=== PATIENT | female | born 1985 | race Caucasian/White ===

== ENCOUNTER 2017-04-14 07:14 | Inpatient (IN) | payer MEDICAID ==
[2017-04-14] MEDS ORDERED: Oxytocin 20 units in LR 2,000 ML IV ONE (07:39)
[2017-04-14] MEDS ORDERED: Sodium Citrate/Citric Acid 15 ml Sol ONE (07:39)
[2017-04-14] MEDS ORDERED: cefOXitin IV 2 gm in Dextrose 2 GM/50 ML BAG IVPB ONE ×2 (07:39→08:00)
[2017-04-14] MEDS ORDERED: Sodium Citrate/Citric Acid 15 ml Sol PO ONE (07:43)
[2017-04-14 07:46] LABS: BASO # 0.1 K/uL (0.0-0.2); BASO % 0.6 % (0.0-2.0); EOS # 0.2 K/uL (0.0-0.7); EOS % 1.2 % (0.0-4.0); HEMATOCRIT 40.6 % (34.0-47.0); LYMPH % 16.2 % (20.0-40.0); MEAN CELL VOLUME 81.3 fL (81.0-99.0); MEAN CORPUSCULAR HEMOGLOBIN 26.5 pg (27.0-31.0); MEAN CORPUSCULAR HGB CONC 32.5 g/dL (33.0-37.0); MEAN PLATELET VOLUME 9.9 fL (7.2-11.7); MONO # 0.6 K/uL (0.0-0.8); MONO % 5.1 % (0.0-10.0); NRBC % 0.1 % (0.0-2.0); RED CELL DISTRIBUTION WIDTH 15.8 % (11.5-14.5); WHITE BLOOD COUNT 12.5 K/uL (4.8-10.8)
[2017-04-14 07:58] LABS: CHLORIDE 102 mmol/L (98-107); POTASSIUM 3.9 mmol/L (3.6-5.2); SODIUM 137 mmol/L (132-148)
[2017-04-14 08:00] LABS: BILIRUBIN,TOTAL 0.8 mg/dL (0.2-1.3); GFR AFRICAN-AMERICAN > 60
[2017-04-14] MEDS ORDERED: Oxytocin 10 Units/ml Inj ONE (08:00)
[2017-04-14 08:01] LABS: ALKALINE PHOSPHATASE 194 U/L (38-126); ALT/SGPT 26 U/L (9-52); AST/SGOT 22 U/L (14-36); BLOOD UREA NITROGEN 6 mg/dL (7-17); CARBON DIOXIDE 20 mmol/L (22-30); GLUCOSE,RANDOM 78 mg/dL (65-105)
[2017-04-14 08:02] LABS: CALCIUM 8.9 mg/dl (8.6-10.4)
--- NOTE | 2017-04-14 08:02 | OBADHP ---
Datetime: 04/14/2017 07:46 Admit Comment, IP Provider: at 39+weeks her for schuled repeat c/s and btl,no ctxs, vb, lof,+fm . obhx 2 x c/s pmh denies med pnv all nkda psh c/s soch de a/p at 39-weeks previous c/s and btl admit to l7d npo/ivf labs pain ma anthesia aware skin atibiotics informed conset taken Pelvic Type - PN: Adequate Extremities - PN: Normal Abdomen - PN: Normal Back - PN: Normal Breast - PN: Normal Lungs - PN: Normal Heart - PN: Normal Thyroid - PN: Normal Neurologic - PN: Normal HEENT - PN: Normal General - PN: Normal FHR - Baseline A Provider: 130 Contraction Comments Provider: irrg Comments, ACOG Physical Exam: gravid,non tender ext no edema,no calf ten IP Hx Assessment: The History has been Reviewed and is Current Vital Signs Provider: Reviewed; Within Normal Limits IP Chief Complaint: Scheduled Section NICHD Variability Prov Fetus A: Moderate 6-25bpm NICHD Accel Fetus A IP Provider: [id number] FHR Category Provider Fetus A: Category I Genitourinary Exam: Normal DTRs - PN: Normal EGA AdmitDate IP: 39.1 IP Adm Impression: Term, intrauterine ; No Active Labor IP Admit Plan: Admit to unit; Initiate Section protocol
[2017-04-14] MEDS ORDERED: Lactated Ringer's 1,000 ML IV SCH (08:15)
[2017-04-14 08:16] LABS: RBC URINE < 1 /hpf (0-3); URINE BILIRUBIN NEGATIVE (NEGATIVE); URINE BLOOD NEGATIVE (NEGATIVE); URINE COLOR Yellow (YELLOW); URINE GLUCOSE (UA) NORMAL (Normal); URINE KETONE NEGATIVE (NEGATIVE); URINE LEUKOCYTE ESTERASE NEG Leu/uL (Negative); URINE PROTEIN NEGATIVE (NEGATIVE); URINE UROBILINOGEN NORMAL mg/dL (0.2-1.0); WBC URINE < 1 /hpf (0-5)
[2017-04-14] MEDS ORDERED: Morphine 1 mg/ml preservative-free Inj(Duramorph) ONE (08:16)
[2017-04-14] MEDS ORDERED: Naloxone 0.4 mg/ml Inj (Adult) IVP PRN (09:23)
--- NOTE | 2017-04-14 09:43 | PCM.SURG1 ---
Surgeon's Initial Post Op Note - Surgeon's Notes Surgeon: dr sarkar Communications Tech: DR LOPEZ Type of Anesthesia: Spinal Anesthesia Administered By: DR HO Pre-Operative Diagnosis: 31 YR at 39weeks repeat sectin and btl Operative Findings: see the op report Post-Operative Diagnosis: same Operation Performed: repeat cesaren sectiin and btl Specimen/Specimens Removed: cord blood Estimated Blood Loss: EBL {In ML}: 800 Blood Products Given: N/A Drains Used: No Drains Post-Op Condition: Good Date of Surgery/Procedure: 04/14/17 Time of Surgery/Procedure: 09:00
[2017-04-14] MEDS: Simethicone 80 mg Chewtab PO SCH ×2 (13:55→21:39)
--- NOTE | 2017-04-14 15:28 | OP ---
PREOPERATIVE DIAGNOSIS: A 31-year-old 3 para 2 at 39 weeks, who was scheduled for repeat section and bilateral tubal ligation. POSTOPERATIVE DIAGNOSIS: A 31-year-old 3 para 2 at 39 weeks, who was scheduled for repeat section and bilateral tubal ligation. SURGEON: Dr. Hair. BREAST SURGEON: Dr. Caldwell. He was present throughout the surgery for retraction, exposure, pushing at the time of delivery, and helping with the tubal ligation. He was present throughout the case. ANESTHESIA: Spinal. ANESTHESIOLOGIST: Dr. Austin Okeefe. ESTIMATED BLOOD LOSS: 800 mL. PROCEDURES PERFORMED: Repeat section and bilateral tubal ligation. DESCRIPTION OF PROCEDURE: After informed consent was obtained, the patient was brought to the operating room and placed on the table where spinal anesthesia was given. When the anesthesia was found to be sufficient, she was prepped and draped in normal sterile fashion. At the site of the previous skin incision, an incision was made with a knife. The subcutaneous was cut with the Bovie. The fascia was excised on both the sides using curved Isbell scissors. The fascia was first from the site of the umbilicus, then at the site of the rectum. The rectus muscle was lifted out with 2 Allis'. The knife was used to cut the muscle and then the peritoneum was scored. It was clean inside the belly. The peritoneum was opened up using the Metzenbaum scissors. Bladder blade was placed. Bladder flap was created. The lower uterine segment was very thinned out. A lower uterine segment incision was made with a knife which we did on both sides using curved Isbell scissors. Baby was delivered in PARRISH position. Cord was clamped and cut. Baby was handed to the awaiting reacher. Placenta delivered manually, not sent to the Pathology. Uterus was exteriorized and cleared of all the clots and debris. Uterine incision was closed with #1 Vicryl in running interlocking fashion. Second layer closure was with the same stitch. The patient wanted the tubal ligation. Both her tubes and ovaries looked normal. Bilateral tubal ligation was done using modified Burdette technique. It was hemostatic. Portions of the both right and left tube were sent to the Pathology. The uterus was returned back to abdominal cavity. Cul-de-sac was cleared of all the clots and debris. Peritoneum was closed using 2-0 Vicryl in running interlocking fashion. Muscle was closed using 2-0 Vicryl in running interlocking fashion. Fascia was closed using #1 Vicryl in running interlocking fashion. Subcutaneous tissue was closed using 0 Vicryl in interrupted fashion. Skin was closed using elisa. The patient tolerated the procedure well. Lap, sponge, and instrument counts were correct x2. Aaron Hair MD
--- NOTE | 2017-04-14 20:30 | OBDS ---
DELIVERY PERSONNEL Delivery Doctor: Stacey Hair MD Scrub Nurse: Dodie Cerna OBT Weed Controller: Yesica Martínez RN Anesthesiologist: Apollo Okeefe MD Resident: Vasyl GuerreroO MATERNAL INFORMATION Delivery Anesthesia: Spinal Medications in Delivery: Pitocin 20units IV Estimated Blood Loss (ml): 800 Placenta Cultured: No Maternal Complications: None RN Comments: Liveborn Baby Boy. 9-9 Provider Comments: baby deliverd in km. end clean btl done no com LABOR SUMMARY EDC: 04/20/2017 00:00 No. Babies in Womb: 1 Attempted: No Labor Anesthesia: None LABOR INFORMATION Reason for Induction: Not Applicable Oxytocin: N/A Group B Beta Strep: Positive Antibiotics # of Doses: 1 Antibiotics Time of Last Dose: Mefoxin 2gm IV @0810 Steroids Given: None Reason Steroids Not Administered: Not Applicable MEMBRANES Membranes Rupture Method: Artificial Rupture of Membranes: 04/14/2017 08:41 Length of Rupture (hrs): 0.00 Amniotic Fluid Color: Clear Amniotic Fluid Amount: Moderate Amniotic Fluid Odor: Normal STAGES OF LABOR Stage 3 hrs: 0 Stage 3 min: 2 CSECTION DELIVERY Primary Indication: Repeat Elective CSection Urgency: Non Elective CSection Incidence: Repeat Labor: No Labor Elective: Nonelective CSection Incision: Lower Uterine Transverse Sterilization Procedure: [place] BABY A INFORMATION Infant Delivery Date/Time: 04/14/2017 08:41 Method of Delivery: Born in Route : No : N/A Forceps: N/A Vacuum Extraction: N/A Shoulder Dystocia : No SHOULDER DYSTOCIA BABY A Delivery Date/Time: 04/14/2017 08:41 PRESENTATION/POSITION BABY A Presentation: Cephalic Cephalic Presentation: Vertex Vertex Position: Left Occipital Posterior Breech Presentation: N/A PLACENTA INFORMATION BABY A Placenta Delivery Time : 04/14/2017 08:43 Placenta Method of Delivery: Manual Removal Placenta Status: Delivered SCORES BABY A Heart Rate 1 min: >100 bpm Resp Effort 1 min: Good Cry Reflex Irritability 1 min: Cough or Sneeze or Pulls Away Muscle Tone 1 min: Active Motion Color 1 min: Body Ginger Blue, Extremities Blue Resuscitation Effort 1 min: N/A SCORE 1 MIN: 9 Heart Rate 5 min: >100 bpm Resp Effort 5 min: Good Cry Reflex Irritability 5 min: Cough or Sneeze or Pulls Away Muscle Tone 5 min: Active Motion Color 5 min: Body Ginger Blue, Extremities Blue Resuscitation Effort 5 min: N/A SCORE 5 MIN: 9 INFANT INFORMATION BABY A Gestational Age at Delivery: 39.1 Gestational Status: Term Outcome : Liveborn Condition : Stable Infant Sex: Male IDENTIFICATION/MEDS BABY A ID Band Number: [id number] ID Band Location: Left Leg; Left Arm Sensor Applied: Yes Sensor Number: [id number] Sensor Location : Cord Clamp Vitamin K Given : Not Given Erythromycin Given: Not Given WEIGHT/LENGTH BABY A Birthweight (gms): 3815 Infant Weight (lb): 8 Weight (oz): 7 Length Inches: 19.50 Infant Length cms: 49.5 CORD INFORMATION BABY A No. Cord Vessels: 3 Nuchal Cord : N/A Cord Blood Taken: Yes Infant Suction: Mouth; Nose ASSESSMENT BABY A Infant Complications: None Physical Findings at Delivery: Within Normal Limits Infant Respirations: Appears Normal Emergency Room Registered Nurse/ALS Called : No Care By: Transferred To: Nursery
[2017-04-15] MEDS: Oxycodone/Acetaminophen 5/325 mg Tab PO PRN ×3 (00:50→19:03)
[2017-04-15 07:48] LABS: MEAN CELL VOLUME 79.9 fL (81.0-99.0); MEAN CORPUSCULAR HEMOGLOBIN 26.3 pg (27.0-31.0); MEAN PLATELET VOLUME 9.3 fL (7.2-11.7); RED CELL DISTRIBUTION WIDTH 15.1 % (11.5-14.5); WHITE BLOOD COUNT 13.8 K/uL (4.8-10.8)
[2017-04-15] MEDS ORDERED: Bisacodyl 5mg EC Tab PO ONE ×2 (08:06→09:21)
[2017-04-15] MEDS: Simethicone 80 mg Chewtab PO SCH ×4 (09:24→22:36)
--- NOTE | 2017-04-15 16:22 | OBPPN ---
Datetime: 04/15/2017 08:25 PP Pain Prov: Within normal limits PP Nausea Prov: Denies PP Flatus Prov: Yes PP Heart Prov: Normal PP Lungs Prov: Normal PP Abdomen/Uterus Prov: Normal PP CVA Tenderness Prov: Normal PP Extremities Prov: Normal PP C/S Incision Prov: Normal PP Progress Prov: Normal PP Impression Prov: Normal progression PP Plan Prov: Continue present management PP Progress Note Prov: S-patient reports adequate pain contro.Patient denies nausea, vomitong, heada solo, chest pain, shortness of breath, numbness or tingling in hands and feet O-VSS Afberile Fundus firm and below umbilcius Incision clean, dry and intact Extremities no calf tenderness A/P Patient s/p csection POD 1 doing well -continue routine postop care -encourage ambulation and po fluid intake -follow up am cbc Vital Signs Provider PP: Reviewed; Within Normal Limits
[2017-04-16] MEDS: Oxycodone/Acetaminophen 5/325 mg Tab PO PRN ×2 (08:37→20:20)
[2017-04-16] MEDS: Simethicone 80 mg Chewtab PO SCH ×4 (09:25→21:58)
--- NOTE | 2017-04-17 07:24 | OBPPN ---
Datetime: 04/17/2017 07:22 PP Pain Prov: Within normal limits PP Nausea Prov: Denies PP Flatus Prov: Yes PP Abdomen/Uterus Prov: Normal PP Lochia Prov: Normal PP Extremities Prov: Normal PP C/S Incision Prov: Normal PP Comments Phys Exam Prov: fudus below umblicus ext mild edema,no calf ten incision clean and dry PP Impression Prov: Normal progression PP Plan Prov: Discharge PP Progress Note Prov: pt was seen at bed side, pain under control, no n/v, tolerating deit,voiding, min lochia, flatus + pod#3 s/p c/s dc home no sex percocet prn f/u o friday for elisa removal Vital Signs Provider PP: Reviewed; Within Normal Limits Datetime: 04/16/2017 15:39 PP BM Prov: No PP Breasts Prov: Normal PP Heart Prov: Normal PP Lungs Prov: Normal PP Vulva/Perineum Prov: Not Done PP CVA Tenderness Prov: Normal PP Progress Prov: Normal
--- NOTE | 2017-04-17 07:26 | OBDCSUM ---
Datetime: 04/17/2017 07:24 Discharged to, Provider: Home Follow up at, Provider: friday Discharge Diagnosis, Provider: Term Delivered Follow up in weeks, Provider: clinixc Disch Activity Restrictions: No exercising; No lifting; No driving; Minimize walking; Minimize stair -climbing; No sexual activity; Nothing in vagina - [place], tampons, douche Discharge Comment, Provider: no sex percocet prn f/u on friday for elisa Discharge Diagnosis Prov Other: s/p repeat c/s and btl
[2017-04-17 08:38] VITALS: BP 110/72; PULSE 78; RESP 18; TEMP 97.9
[2017-04-17] MEDS: Simethicone 80 mg Chewtab PO SCH (09:27)
--- NOTE | 2017-04-17 09:44 | CP.PCM.DIS ---
Provider - Provider Date of Admission: 04/14/17 07:14 Attending physician: Aaron Hair MD Primary care physician: Amanda Richards MD Time Spent in preparation of Discharge (in minutes): 30 Diagnosis - Discharge Diagnosis (1) S/P Status: Acute Comment: with tubal ligation performed on 04/14/17 Hospital Course - Lab Results Lab Results: Most Recent Lab Values WBC 13.8 K/uL (4.8-10.8) H 04/15/17 07:33 RBC 4.25 Mil/uL (3.80-5.20) 04/15/17 07:33 Hgb 11.2 g/dL (11.0-16.0) D 04/15/17 07:33 Hct 34.0 % (34.0-47.0) 04/15/17 07:33 MCV 79.9 fL (81.0-99.0) L 04/15/17 07:33 MCH 26.3 pg (27.0-31.0) L 04/15/17 07:33 MCHC 33.0 g/dL (33.0-37.0) 04/15/17 07:33 RDW 15.1 % (11.5-14.5) H 04/15/17 07:33 Plt Count 169 K/uL (130-400) 04/15/17 07:33 MPV 9.3 fL (7.2-11.7) 04/15/17 07:33 Neut % (Auto) 76.9 % (50.0-75.0) H 04/14/17 07:42 Lymph % (Auto) 16.2 % (20.0-40.0) L 04/14/17 07:42 Hendricks % (Auto) 5.1 % (0.0-10.0) 04/14/17 07:42 Eos % (Auto) 1.2 % (0.0-4.0) 04/14/17 07:42 Baso % (Auto) 0.6 % (0.0-2.0) 04/14/17 07:42 Neut # 9.6 K/uL (1.8-7.0) H 04/14/17 07:42 Lymph # 2.0 K/uL (1.0-4.3) 04/14/17 07:42 Hendricks # 0.6 K/uL (0.0-0.8) 04/14/17 07:42 Eos # 0.2 K/uL (0.0-0.7) 04/14/17 07:42 Baso # 0.1 K/uL (0.0-0.2) 04/14/17 07:42 Sodium 137 mmol/L (132-148) 04/14/17 07:42 Potassium 3.9 mmol/L (3.6-5.2) 04/14/17 07:42 Chloride 102 mmol/L (98-107) 04/14/17 07:42 Carbon Dioxide 20 mmol/L (22-30) L 04/14/17 07:42 Anion Gap 19 (10-20) 04/14/17 07:42 BUN 6 mg/dL (7-17) L 04/14/17 07:42 Creatinine 0.5 MG/DL (0.7-1.2) L 04/14/17 07:42 Est GFR ( Amer) > 60 04/14/17 07:42 Est GFR (Non-Af Amer) > 60 04/14/17 07:42 Random Glucose 78 mg/dL (65-105) 04/14/17 07:42 Calcium 8.9 mg/dl (8.6-10.4) 04/14/17 07:42 Total Bilirubin 0.8 mg/dL (0.2-1.3) 04/14/17 07:42 AST 22 U/L (14-36) 04/14/17 07:42 ALT 26 U/L (9-52) 04/14/17 07:42 Alkaline Phosphatase 194 U/L (38-126) H 04/14/17 07:42 Total Protein 7.0 g/dL (6.3-8.3) 04/14/17 07:42 Albumin 3.6 g/dL (3.5-5.0) 04/14/17 07:42 Globulin 3.4 gm/dL (2.2-3.9) 04/14/17 07:42 Albumin/Globulin Ratio 1.0 (1.0-2.1) 04/14/17 07:42 Urine Color Yellow (YELLOW) 04/14/17 08:01 Urine Clarity Clear (Clear) 04/14/17 08:01 Urine pH 6.0 (5.0-8.0) 04/14/17 08:01 Ur Specific [place] 1.011 (1.003-1.030) 04/14/17 08:01 Urine Protein Negative mg/dL (NEGATIVE) 04/14/17 08:01 Urine Glucose (UA) Normal mg/dL (Normal) 04/14/17 08:01 Urine Ketones Negative mg/dL (NEGATIVE) 04/14/17 08:01 Urine Blood Negative (NEGATIVE) 04/14/17 08:01 Urine Nitrate Negative (NEGATIVE) 04/14/17 08:01 Urine Bilirubin Negative (NEGATIVE) 04/14/17 08:01 Urine Urobilinogen Normal mg/dL (0.2-1.0) 04/14/17 08:01 Ur Leukocyte Esterase Neg Frances/uL (Negative) 04/14/17 08:01 Urine WBC (Auto) < 1 /hpf (0-5) 04/14/17 08:01 Urine RBC (Auto) < 1 /hpf (0-3) 04/14/17 08:01 Ur Squamous Epith Cells 1 /hpf (0-5) 04/14/17 08:01 RPR Nonreactive (NONREACTIVE) 04/14/17 07:42 Hep Bs Antibody Negative (NEGATIVE) 04/14/17 10:23 Rubella IgG Antibody Positive (POSITIVE) 04/14/17 11:36 Blood Type O POSITIVE 04/14/17 08:01 Antibody Screen Negative 04/14/17 08:01 - Hospital Course Hospital Course: On admission: Patient is 31 yo female at 39+ weeks presenting to [facility] for repeat and bilateral tubal ligation. She has had two previous c-sections in the past. Hospital course: Patient admitted on 04/14/17 to labor and delivery floor for scheduled and bilateral tubal ligation. performed on 04/14/[address] Hair. Gestational age at delivery, full term, 39.1 weeks. Male baby born 8lbs 7 oz. Infant care provided by Dr. Reyes. Through course mother has been ambulating, using incentive spirometer, and passing flatus. She has appointment for follow up with [facility] on 04/21/17. Patient stable for discharge by attending, Dr. Hair on 04/17/17. - Date & Time of H&P Date of H&P: 04/14/17 Time of H&P: 08:02 Discharge Exam - Head Exam Head Exam: ATRAUMATIC, NORMAL INSPECTION, NORMOCEPHALIC - Eye Exam Eye Exam: EOMI. absent: Scleral icterus Pupil Exam: PERRL - ENT Exam ENT Exam: Mucous Membranes Moist - Respiratory Exam Respiratory Exam: Clear to PA & Lateral, UNREMARKABLE. absent: Rales, Rhonchi, Wheezes, Respiratory Distress - Cardiovascular Exam Cardiovascular Exam: REGULAR RHYTHM, +S1, +S2 - GI/Abdominal Exam GI & Abdominal Exam: Normal Bowel Sounds, Soft, Tenderness (appropriate tenderness for day 3 s/p ) - Extremities Exam Extremities exam: normal inspection - Back Exam Back exam: NORMAL INSPECTION - Neurological Exam Neurological exam: Alert, Oriented x3 - Psychiatric Exam Psychiatric exam: Normal Affect, Normal Mood - Skin Skin Exam: Normal Color, Warm Discharge Plan - Discharge Medications Prescriptions: oxyCODONE/Acetaminophen [Percocet 5/325 mg Tab] 1 tab PO Q4H PRN #20 tab PRN Reason: Pain, Moderate (4-7) - Follow Up Plan Condition: GOOD Disposition: HOME/ ROUTINE Instructions: Section (DC), Caring for Your Baby (DC), and Nipple Soreness (DC), How to Tell if Your Baby is Getting Enough Breast Milk (DC), and Your Diet (DC), Staple Care (DC), Your Fouke's Appearance (DC) Additional Instructions: Patient stable for discharge per Dr. Hair. Patient should follow up with [facility] on 04/21/17, for removal of elisa. Patient is advised to not engage in sexual intercourse for 6 weeks. She should not insert anything into the vagina including tampons or douches for 6 weeks. She is advised against exercising, lifting or driving. She has been given a prescription for Percocet 5/325mg. She may take one pill by mouth every fours NEEDED for pain control. She has been dispensed 20 ( twenty pills) Patient should go to the nearest emergency room if symptoms return or worsen. Prescribed medications: Percocet 5/325mg (dispense #20, twenty) Referrals: Amanda Richards MD [Primary Care Provider] -
[2017-04-17 15:57] VITALS: O2SAT 96
== END 2017-04-17 11:55 | disposition home or self-care (01) | DRG 371 ==
LOC: C.4D 07:14 → C.4M 11:18
PROVIDERS: ADMIT Obstetrics & Gynecology; ATTEND Obstetrics & Gynecology
PROC: 10D00Z1 Extraction of Products of Conception, Low, Open Approach (ICD-10-PCS; principal; 2017-04-14)
PROC: 0UB70ZZ Excision of Bilateral Fallopian Tubes, Open Approach (ICD-10-PCS; 2017-04-14)
DX: O34.211 Maternal care for low transverse scar from previous cesarean delivery (principal); O99.824 Streptococcus B carrier state complicating childbirth; Z30.2 Encounter for sterilization; Z37.0 Single live birth; Z3A.39 39 weeks gestation of pregnancy